=== PATIENT | female | born 1950 | race Caucasian/White ===

== ENCOUNTER 2023-05-12 10:40 | Day surgery (SDC) | payer MEDICARE, OTHER ==
[2023-05-12] MEDS ORDERED: Sodium Chloride 0.9(Preservative Free) 10 ML IJ ONE (10:41)
[2023-05-12] MEDS ORDERED: Decadron 4 MG INJ IV ONE (10:41)
[2023-05-12] MEDS ORDERED: LIDOCAINE HCL 1% 50 MG/5 ML VL PF IJ ONE (10:41)
[2023-05-12] MEDS ORDERED: Depo-Medrol 40 MG/ML IM ONE (10:41)
[2023-05-12] MEDS ORDERED: Pepcid 20 MG VIAL IV ONE (12:26)
[2023-05-12] MEDS ORDERED: Reglan 10 MG/2 ML ONE (12:26)
[2023-05-12] MEDS ORDERED: DIPRIVAN 200 MG/20 ML IV ONE (15:21)
[2023-05-12] MEDS ORDERED: Lactated Ringers 1,000 ML IV ONE (15:23)
--- NOTE | 2023-05-12 16:27 | XRAY ---
Indication: Right L4-S1 transforaminal KEILY. Intraoperative fluoroscopy provided for 46 seconds. 6 digital spot images submitted for interpretation demonstrates posterior needle tips projecting over the expected right L4 and L5 nerve roots. Small amount of contrast injected for needle tip placement. Correlate with intraoperative findings/report.
--- NOTE | 2023-05-12 16:27 | XRAY ---
Indication: Right piriformis injection. Intraoperative fluoroscopy provided for 24 seconds. 2 digital spot images submitted for interpretation demonstrates posterior needle tip projecting over the expected left and right piriformis. Small amount of contrast injected for needle tip placement. Correlate with intraoperative findings/report.
--- NOTE | 2023-05-13 08:47 | XRAY ---
46 seconds of fluoroscopy was used in surgery for a right L4-S1 transforaminal KEILY.
--- NOTE | 2023-05-13 08:47 | XRAY ---
24 seconds of fluoroscopy was used in surgery for a bilateral piriformis injection.
== END 2023-05-12 16:02 | disposition home or self-care (01) ==
LOC: SDC-PAIN 10:40
PROVIDERS: ATTEND Psychiatry & Neurology Pain Medicine
DX: M54.16 Radiculopathy, lumbar region (principal); M79.18 Myalgia, other site; Z79.899 Other long term (current) drug therapy
CPT/HCPCS: 20553; 64483; 64484; 72100; 72170; 77002; 77003; J1030; J1100; J2001; J2704; Q9966